=== PATIENT | female | born 1975 | race Caucasian/White ===

== ENCOUNTER 2024-04-24 23:17 | Outpatient (OUT) | payer BC, SELFPAY | END 2024-04-24 23:18 | disposition home or self-care (01) | LOC: SLEEP 23:17 | PROVIDERS: PCP Internal Medicine; Visit Provider Internal Medicine | DX: G47.33 Obstructive sleep apnea (adult) (pediatric) (principal) | CPT/HCPCS: 95811 ==

== ENCOUNTER 2024-06-29 15:50 | Emergency (ER) | payer BC, SELFPAY ==
[2024-06-29] VITALS (11 sets, daily range): BP systolic 148; BP diastolic 89; PULSE 77–86; TEMP 36.8; O2SAT 95–98; BMI 47.0
--- NOTE | 2024-06-29 15:53 | ECG_ITS ---
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 Measurements Intervals [place] Rate: 82 P: 73 NE: 142 QRS: 3 QRSD: 88 T: 32 QT: 356 QTc: 394 Interpretive Statements 1100 Sinus rhythm 4068 Nonspecific [place] abnormality 8102 Low QRS voltage in chest leads Abnormal lECG No previous ECG available for comparison Electronically Signed On 06-29-2024 19:06:58 EDT by ELSY PÉREZ M.D.
--- NOTE | 2024-06-29 15:59 | ED_ITS ---
HPI HPI - General Adult General Chief complaint: Chest Pain Stated complaint: CHEST PAIN Time Seen by Provider: 06/29/24 15:53 Source: patient and EMR Mode of arrival: ambulance History of Present Illness HPI narrative: Patient is a 48-year-old female who presents to the ER via EMS from work with concerns of chest pain. Patient states she was doing her job in a warm environment but it was not stressful or labor-intensive when she developed some upper mid chest sharp chest pain she noted then symptoms going into her left arm and she has some residual tingling in her left hand now still on arrival she notes that the chest pain has subsided and EMS gave 4 baby aspirin during transport they were unable to establish an IV. She has no known cardiac history herself no prior history of PE or DVT. She denies any long travels flights or surgeries. Patient states her father had a cardiac event at age 65 and she becomes anxious speaking about the episode. She denies having similar symptoms in the past but admits to a heavy smoking history patient appears anxious and concerned regarding symptoms but in no distress at bedside she has not hypoxic or with acute shortness of breath. Patient admits that her chest pain is resolved and she has minimal tingling in her left hand as a result which is global and nonfocal to a certain dermatome or carpal tunnel like symptom. 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 but no different than any other day Location: Reports chest Radiation: Reports extremity Severity: moderate Quality: Reports stabbing and sharp Pain Consistency: Reports now resolved Exacerbating factors: Reports none Associated symptoms: Reports denies other symptoms Treatments prior to arrival: Reports none Related Data Home Medications ?Medication ?Instructions ?Recorded ?Confirmed No Known Home Medications 06/29/24 06/29/24 Allergies Allergy/AdvReac Type Severity Reaction Status Date / Time azithromycin (From Zithromax) Allergy hives Verified 06/29/24 15:52 cephalexin (From Keflex) Allergy Rash Verified 06/29/24 15:53 morphine Allergy Hives Verified 06/29/24 15:52 Penicillins Allergy Rash Verified 06/29/24 15:52 Opioid HPI Opioid Management Most Recent Opioid Data: No Data to Display Review of Systems ROS Constitutional Denies: fever or chills Eyes Denies: change in vision or blurry vision Ears, nose, mouth, and throat Denies: throat pain, neck pain or throat swelling Cardiovascular Reports: chest pain; Denies: palpitations, edema, swelling of feet/ankles or lightheadedness Respiratory Denies: shortness of breath, cough or wheezing Gastrointestinal Denies: abdominal pain, nausea or vomiting Genitourinary Denies: painful urination Musculoskeletal Denies: back pain, neck pain, extremity pain or extremity swelling Integumentary/Breast Denies: rash Neurological Denies: headache or numbness in extremities Psychiatric Denies: anxiety Endocrine Denies: excessive urination Hematologic/Lymphatic Denies: easy bruising PFSH PFSH Social History Little interest or pleasure in doing things: not at all Feeling down, depressed, or hopeless: not at all Exam Narrative Exam Narrative: Nurses notes and vital signs reviewed and patient is not hypoxic. General: The patient appears well and in no apparent distress. Patient is resting comfortably on cart. Skin: Warm, dry, no pallor noted. Head: Normocephalic, atraumatic Neck: Supple, trachea mid-line, no tenderness, no lymphadenopathy Eye: Pupils are equal, round and reactive to light, EOMI Ears, Nose, Mouth, and Throat: TM are clear, normal light reflex, oral mucosa is moist, no posterior oropharynx erythema or hypertrophy, uvula is mid-line Cardiovascular: Regular Rate and Rhythm Respiratory: Patient is in no distress, no accessory muscle use, lungs are clear to auscultation, no wheezing, rales or rhonchi. Chest Wall: no tenderness on palpation. 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 Radial pulses 2+. GI: Normal bowel sounds, no tenderness to palpation, no masses appreciated. No rebound, guarding, or rigidity noted. Neurological: A&O x4 Psychiatric: Cooperative Constitutional Vital Signs, click to edit/add: Last Vital Signs Temp 98.2 F 06/29/24 15:53 Pulse 77 06/29/24 17:15 Resp 18 06/29/24 17:15 BP 148/89 H 06/29/24 15:53 Pulse Ox 95 06/29/24 17:15 O2 Del Method Room Air 06/29/24 16:11 Course Vital Signs Vital signs: Vital Signs Temperature 98.2 F 06/29/24 15:53 Pulse Rate 84 06/29/24 15:53 Respiratory Rate 20 06/29/24 15:53 Blood Pressure 148/89 H 06/29/24 15:53 Pulse Oximetry 98 06/29/24 15:53 Oxygen Delivery Method Room Air 06/29/24 15:53 Temperature 98.2 F 06/29/24 15:53 Pulse Rate 77 06/29/24 17:15 Respiratory Rate 18 06/29/24 17:15 Blood Pressure 148/89 H 06/29/24 15:53 Pulse Oximetry 95 06/29/24 17:15 Oxygen Delivery Method Room Air 06/29/24 16:11 Medical Decision Making MDM Narrative Medical decision making narrative: Patient received full dose aspirin during transport symptoms resolved on arrival we discussed her history smoking and family history she is agreeable to laboratory studies initial EKG without evidence of ST elevation. She will notify us if her symptoms return. Patient's vitals are stable she has remained asymptomatic during her stay just laboratory evaluation with negative D-dimer negative troponin x 2 she is verbally aware of the need to follow-up with her family doctor for ongoing evaluation into her symptoms given her history and presentation I feel she is safe to discharge home should her symptoms worsen or change throughout the weekend she should return. I am recommending she be off work for the next 2 days pending reevaluation with her PCP on Tuesday. Patient thankful and had no further concerns or questions The patient is to followup with primary care physician in next 2-3 days or to return to the emergency department should any of the signs or symptoms worsen or new symptoms develop. Patient had questions answered. The patient agrees with the following Diagnosis and Treatment plan and the patient will be discharged home. Lab Data Labs: Lab Results 06/29/24 06/29/24 Range/Units 16:06 17:04 WBC 9.9 (4.0-11.0) 10^3/uL RBC 4.31 (4.20-5.40) 10^6/uL Hgb 13.7 (12.0-16.0) g/dL Hct 40.6 (36.0-48.0) % MCV 94.2 (81.0-99.0) fL MCH 31.8 (26.7-34.0) pg MCHC 33.7 (29.9-35.2) g/dL RDW 13.2 (11.0-15.0) % Plt Count 227 (150-450) 10^3/uL MPV 9.9 (9.5-13.5) fL Neut % (Auto) 72.1 (43.0-75.0) % Lymph % (Auto) 20.6 (20.5-60.0) % [place] % (Auto) 5.0 (1.7-12.0) % Eos % (Auto) 1.3 (0.9-7.0) % Baso % (Auto) 0.4 (0.2-2.0) % Neut # (Auto) 7.1 H (1.4-6.5) 10^3/uL Lymph # (Auto) 2.0 (1.2-3.8) 10^3/uL [place] # (Auto) 0.5 (0.3-0.8) 10^3/uL Eos # (Auto) 0.1 (0.0-0.7) 10^3/uL Baso # (Auto) 0.0 (0.0-0.1) 10^3/uL Abs Immat Gran (auto) 0.06 H (0.00-0.03) 10^3/uL Imm/Tot Granulo (auto) 0.6 H (0.0-0.5) % D-Dimer 0.21 (<=0.59) mg/L FEU Sodium 139 (136-145) mmol/L Potassium 3.6 (3.5-5.1) mmol/L Chloride 105 (98-107) mmol/L Carbon Dioxide 26.6 (21.0-32.0) mmol/L Anion Gap 11.0 BUN 10.0 (7.0-18.0) mg/dL Creatinine 0.70 (0.55-1.02) mg/dL Est GFR ( Amer) >60 (>=60 mL/min/1.73m^2) Est GFR (Non-Af Amer) >60 (>=60 mL/min/1.73m^2) BUN/Creatinine Ratio 14.3 Glucose 146 H (74-106) mg/dL Calcium 8.9 (8.5-10.1) mg/dL Total Bilirubin 0.5 (0.2-1.0) mg/dL AST 20 (15-37) U/L ALT 38 (14-59) U/L Alkaline Phosphatase 103 (46-116) U/L Troponin I High Sens <4.0 L <4.0 L (4.0-51.3) pg/mL Total Protein 6.7 (6.4-8.2) g/dL Albumin 3.5 (3.4-5.0) g/dL Globulin 3.2 g/dL Albumin/Globulin Ratio 1.1 Amylase 28 (25-115) U/L Lipase 37.0 (16.0-77.0) U/L ECG Data Attestation: I personally reviewed and interpreted this ECG as follows: Interpretation: EKG interpretation: Emergency Department physician interpretation, normal sinus rhythm 82bpm, no ectopy, no ST segment elevation, normal axis. Flattened T waves in V4 and V5 EKG from EMS reviewed, no acute process. And unchanged. 93bpm Discharge Plan Discharge Chief Complaint: Chest Pain Clinical Impression: Chest pain Patient Disposition: Home, Self-Care Time of Disposition Decision: 17:37 Condition: Good Prescriptions / Home Meds: No Action No Known Home Medications Print Language: Kazakh Instructions: Chest Pain (ED), How to Stop Smoking (ED) Additional Instructions: Contact your PCP for follow-up on Tuesday. Referrals: Christos Melo MD [Physician] - As soon as possible ARNAUD HI [Physician] - As soon as possible
[2024-06-29 16:13] LABS: Basophils Percent Auto 0.4 % (0.2-2.0); Eosinophils Absolute Auto 0.1 10^3/uL (0.0-0.7); Eosinophils Percent Auto 1.3 % (0.9-7.0); Hematocrit 40.6 % (36.0-48.0); Hemoglobin 13.7 g/dL (12.0-16.0); Immature Granulocytes Abs Auto 0.06 10^3/uL (0.00-0.03); Immature Granulocytes Pct Auto 0.6 % (0.0-0.5); Lymphocytes Percent Auto 20.6 % (20.5-60.0); Mean Corpuscular HGB Conc 33.7 g/dL (29.9-35.2); Mean Corpuscular Hemoglobin 31.8 pg (26.7-34.0); Mean Corpuscular Volume 94.2 fL (81.0-99.0); Mean Platelet Volume 9.9 fL (9.5-13.5); Monocytes Absolute Auto 0.5 10^3/uL (0.3-0.8); Neutrophils Absolute Auto 7.1 10^3/uL (1.4-6.5); Neutrophils Percent Auto 72.1 % (43.0-75.0); Platelet Count 227 10^3/uL (150-450); Red Blood Count 4.31 10^6/uL (4.20-5.40); Red Cell Distribution Width 13.2 % (11.0-15.0); White Blood Count 9.9 10^3/uL (4.0-11.0)
[2024-06-29 16:32] LABS: Alanine Aminotransferase 38 U/L (14-59); Albumin Globulin Ratio 1.1; Albumin Level 3.5 g/dL (3.4-5.0); Alkaline Phosphatase 103 U/L (46-116); Aspartate Amino Transferase 20 U/L (15-37); BUN Creatinine Ratio 14.3; Bilirubin Total 0.5 mg/dL (0.2-1.0); Calcium 8.9 mg/dL (8.5-10.1); Carbon Dioxide 26.6 mmol/L (21.0-32.0); Chloride 105 mmol/L (98-107); Estimated GFR (African America >60 (>=60 mL/min/1.73m^2); Estimated GFR (Non-African Ame >60 (>=60 mL/min/1.73m^2); Globulin 3.2 g/dL; Glucose 146 mg/dL (74-106); Potassium 3.6 mmol/L (3.5-5.1); Sodium 139 mmol/L (136-145); Total Protein 6.7 g/dL (6.4-8.2); Troponin I High Sensitivity <4.0 pg/mL (4.0-51.3)
[2024-06-29 16:34] LABS: Amylase 28 U/L (25-115); D Dimer 0.21 mg/L FEU (<=0.59)
[2024-06-29 17:33] LABS: Troponin I High Sensitivity <4.0 pg/mL (4.0-51.3)
== END 2024-06-29 17:51 | disposition home or self-care (01) ==
PROVIDERS: Personal Emergency Response Attendant; Emergency Provider Emergency Medicine; PCP Family Medicine
DX: R07.9 Chest pain, unspecified (principal); F17.200 Nicotine dependence, unspecified, uncomplicated
CPT/HCPCS: 36415; 71045; 80053; 82150; 83690; 84484; 85025; 85378; 93005; 99285